=== PATIENT | male | born 1945 | race Caucasian/White ===

== ENCOUNTER → 2018-06-10 13:59 | Outpatient (CLI) | payer MEDICARE, BC, SELFPAY ==
--- NOTE | 2018-06-10 | OV.WND_ITS ---
Progress Note Details Patient Name: Juanito Bateman Patient Number: [id number] PatientPatientDate: 06/10/2018 Clinician: Jessenia Jason Clinician Cosigner: Lilly Stinson Physician / Rn Referral: Taurus Allen SUBJECTIVE Chief Complaint This information was obtained from the patient Cellulitis to left Achilles post surgical repair. Allergies Sulfa (Sulfonamide Antibiotics) (Severity: Moderate, Reaction: unkown, many years ago) HPI This information was obtained from the patient 06/10/18. Seen by Dr. Allen. 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 He tore his Achilles tendon in early March and subsequently had it surgically repaired in [place], [place] where he resides part of the year. He's had 3 casts placed subsequently and upon removal of the third cast the wound was found to be draining with surrounding cellulitis. He does not report pain at the site nor fevers or feeling unwell and he's just completed a course of doxycycline and had 2 ceftriaxone injections however feels the antibiotics have not been very effective. Family History This information was obtained from the patient Heart Disease - Mother, Father, Stroke - Mother Social History This information was obtained from the patient Former smoker - Never a regular smoker, Alcohol Use - 1/2 cup per day, Caffeine Use - 3/day, Children - 4 biological, 1 stepchild, Lives in - Private home, Marital Status - , Retired Past Medical History This information was obtained from the patient Patient has a medical history of: Hypertension Gouty Arthritis Surgical History This information was obtained from the patient Patient has a surgical history of: Achilles Tendon repair Total Hip replacement (bilateral ) Complaints and Symptoms This information was obtained from the patient Patient complains of: General Notes: I have reviewed and concur with the Review of Systems and Past Family Social History documents completed by the clinician, I have reviewed and concur with the Wound Assessment document completed by the clinician Integumentary (Hair/Skin/Nails): Open Sore Musculoskeletal: Assistive Devices Prior Wound History: Drainage, Erythema Patient denies complaints or symptoms related to: Cardiovascular (Central/Peripheral): Intermittent Claudication, Lower extremity (leg) resting pain, Lower extremity (leg) swelling Constitutional Symptoms (General Health): Chills, Fever Ear/Nose/Mouth/Throat: Hearing Loss / Aid Hematologic/Lymphatic: Bleeding / Clotting Disorders, Bleeding Tendency Neurological: Loss of Protective Sensation Psychiatric: Memory Loss Respiratory: Shortness of Breath General Notes: Patient believes he is up to date on all recommended immunizations. Additional Information Does patient have a history of Cancer? Yes? Complete all questions.: No Medications clindamycin HCl 300 mg capsule oral capsule oral three times daily for 7 days for cellulitis OBJECTIVE Constitutional BP elevated; Low grade fever; Alert and in no distress. Well developed. Alert. Clean appearing.. Height/Length: 71 in (180.34 cm), Weight: 207.4 lbs (94.27 kgs), BMI : 28.9, Temperature: 99.3 ?F (37.39 ?C), Pulse: 79 bpm, Respiratory Rate: 16 breaths/min , Blood Pressure: 162/85 mmHg, Pulse Oximetry: 95 %. Ears, Nose, Mouth, and Throat: No clinically significant hearing loss on informal examination. Respiratory: No respiratory distress. Even respirations and without use of accessory muscles.. Cardiovascular: Pedal pulses 2+ on affected limb. 1+ right lower extremity edema. Integumentary (Hair, Skin) Mild periwound erythema with warmth; minimal purulent drainage; blue exposed suture extending to upper margin of wound. Refer to appropriate clinician wound documentation for this visit; right lower leg wound overlying surgical scar extends to subcut with base minimally covered with pink granulation, remainder fibrin and slough. Wound #1 Left Achilles is a chronic Full Thickness Surgical Wound and has received a status of Not Healed. Initial wound encounter measurements are 4.5cm length x 0.5cm width x 0.3cm depth, with an area of 2.25 sq cm and a volume of 0.675 cubic cm. No tunneling has been noted. No sinus tract has been noted. No undermining has been noted. There is a moderate amount of sero-sanguineous drainage noted which has no odor. The patient reports a wound pain of level 0/10. The wound margin is attached. Wound bed has Yes epithelialization, No eschar, Yes slough, Yes pink, firm granulation. The periwound skin moisture is normal. The periwound skin exhibited: Edema, Erythema. The periwound skin did not exhibit: Brawny Induration, Excoriation, Induration, Callus, Crepitus, Fluctuance, Friable, Rash, Atrophie Tereza, Cyanosis, Ecchymosis, Hemosiderosis , Pallor, Rubor. The temperature of the periwound skin is WNL. Periwound skin does not exhibit signs or symptoms of infection. Local Pulse is Palpable. Neurological: Cranial nerves grossly intact with symmetric function normal by informal observation.. ASSESSMENT Active Problems ICD-10 (Encounter Diagnosis) S81.802D - Unspecified open wound, left lower leg, subsequent encounter (Encounter Diagnosis) T81.31XD - Disruption of external operation (surgical) wound, not elsewhere classified, subsequent encounter (Encounter Diagnosis) L03.116 - Cellulitis of left lower limb PROCEDURES Wound #1 Wound #1 (Surgical Wound) is located on the left achilles. A skin/subcutaneous tissue level surgical debridement with a total area debrided of 2.4 sq cm was performed by Taurus Allen MD. Subcutaneous was removed along with devitalized tissue: exudate and slough. The following instrument(s) were used: curette, forceps, and scissors. Pain control was achieved using 4% Lido. A time out was conducted prior to the start of the procedure. A minimal amount of bleeding was controlled with pressure. The procedure was tolerated well with a pain level of 0 throughout and a pain level of 0 following the procedure. Post Debridement Measurements: 4cm length x 0.6cm width x 0.4cm depth; with an area of 2.4 sq cm and a volume of 0.96 cubic cm; Additional Information Muscle fascia or bone removed and sent to pathology?: No PLAN Wound Orders: Wound #1 Left Achilles Anesthetic Topical Xylocaine to wound bed. - In clinic only. Cleanser Cleanse Wound: - Normal saline and gauze, may use distilled water at home. May Shower. - Cover while in shower, may purchase cast protector from your local pharmacy. Topical Treatments Antibiotic/Antimicrobial Ointment/Cream. - Gentamicin ointment. Dressings Cover and secure with: - Bordered foam. Bordered KerraMax dressing being ordered through [facility]. Change Dressing: - Daily. Additional Orders: Follow-Up Appointments Return Appointment: - - One week. Other information: If you develop fever, chills, increased pain, drainage, redness or swelling please call our office. If after hours, respond to the ER. Should you experience any significant changes in your wound(s) or have any questions regarding your home care instructions please contact the wound center @ [phone]. If after hours, contact your primary care physician or go to the hospital emergency room. Scribing Attestation I attest, as the nurse, that I scribed these orders for the physician. Laboratory: Culture Wound - x2 Medications prescribed: clindamycin HCl - oral 300 mg capsule three times daily for 7 days for cellulitis starting 06/10/2018 General Notes: Call being made to a surgeon's office to talk about possibly evaluating exposed suture. Please garbage pick up worker clindamycin and start today, topical gentamicin ointment also prescribed. Culture taken today, will call if any changes in antibiotics are needed. I've reviewed the clinician's documentation and agree with the evaluation and plan as written. In addition the patient's wound demonstrates evidence of non-viable devitalized tissue which will continue to benefit from sharp debridement to help promote granulation and expedite healing. Also, I've started the patient empirically on clindamycin due to persistent cellulitis associated with the dehisced surgical wound and have also taken two wound cultures. The exposed suture which remains intact is concerning that there may be deeper infection which may have to be addressed surgically. I'll see if he can be seen locally by Dr. Tipton, orthopedics, however if needed he's amenable to return to [place] to see his original orthopedic surgeon as well. Electronic Signature(s) Signed By: Date: Taurus Allen MD 06/11/2018 06:52:26 Entered By: Taurus Allen on 06/11/2018 06:37:48
== END ==
PROVIDERS: PCP Nurse Practitioner Family; Visit Provider Internal Medicine
DX: S81.802A Unspecified open wound, left lower leg, initial encounter (principal); T81.31XA Disruption of external operation (surgical) wound, not elsewhere classified, initial encounter; L03.116 Cellulitis of left lower limb
CPT/HCPCS: 11042; 87070; 87075; 87077; 87147; 87186; 87205; 99213

== ENCOUNTER → 2025-06-14 08:35 | Outpatient (CLI) | payer MEDICARE, BC, SELFPAY | PROVIDERS: PCP Family Medicine; Visit Provider Physician Assistant Medical | DX: M79.671 Pain in right foot (principal) | CPT/HCPCS: 87070; 87075; 87205 ==